=== PATIENT | female | born 2005 | race Hispanic/Latino ===

== ENCOUNTER 2025-04-27 18:38 | Emergency (ER) | payer MEDICAID ==
[~2025-04-27] VITALS: Ht 160 cm; Wt 83.9 kg
[2025-04-27 18:39] VITALS: TEMP 98.2
--- NOTE | 2025-04-27 18:49 | ERN ---
ED Note History of Present Illness Stated Complaint: VAGINAL BLEEDIN Chief Complaint: Vaginal Bleeding Time Seen by MD: 18:40 Dictation: PATIENT IS A 19-YEAR-OLD FEMALE WHO STATES SHE IS HERE WITH VAGINAL BLEEDING AND PELVIC CRAMPING ONSET THREE DAYS PRIOR TO ARRIVAL. SHE STATES SHE IS SEVEN WEEKS ,. SHE IS A PATIENT OF DR. TSANG HOWEVER HAS NOT HAD HER 1ST APPOINTMENT YET. SHE STATES SHE CALLED HIS OFFICE OVER THE LAST THREE DAYS I HAVE NOT BEEN ABLE TO SQUEEZE HER IN SHE CALLED THE ANSWERING SERVICE TODAY AND WAS ADVISED TO GO TO ANY HOSPITAL THAT HAD OB SERVICES. SHE HAS HAD NO CARE HAS NOT HURT HER VISIT TO DR. TSANG Allergies: Coded Allergies: ibuprofen (Unverified Allergy, Unknown, 04/27/25) Past Medical History Past Medical History: No Pertinent History Surgical History: None : 2 Para: 1 Aborts: 0 RN Note Reviewed/Agreed w/PFSH: Yes Review of System Dictation CONSTITUTIONAL: NEGATIVE EXCEPT FOR HPI HEAD/FACE: NEGATIVE EXCEPT FOR HPI EENT: NEGATIVE EXCEPT FOR HPI RESPIRATORY: NEGATIVE EXCEPT FOR HPI GASTROINTESTINAL/ABDOMINAL: NEGATIVE EXCEPT FOR HPI GENITOURINARY: NEGATIVE EXCEPT FOR HPI VAGINAL BLEEDING WITH CRAMPING MUSCULOSKELETAL: NEGATIVE EXCEPT FOR HPI INTEGUMENTARY: NEGATIVE EXCEPT FOR HPI NEUROLOGICAL/PSYCH: NEGATIVE EXCEPT FOR HPI HEMATOLOGIC/LYMPHATIC: NEGATIVE EXCEPT FOR HPI ALL SYSTEMS NEGATIVE, EXCEPT NOTED ABOVE. 13 POINT REVIEW OF SYSTEMS ASSESSED AND ALL NEGATIVE EXCEPT FOR ABOVE. Initial Vital Sign VS Vital Signs Date Time Temp Pulse Resp B/P (MAP) Pulse Ox O2 Delivery O2 Flow Rate FiO2 04/27/25 18:39 98.2 95 18 118/70 99 Room Air 04/27/25 18:39 0 21 Physical Exam Dictation VITAL SIGNS REVIEWED GENERAL APPEARANCE: ALERT, ORIENTED X 3, NO ACUTE DISTRESS, WELL DEVELOPED, NOURISHED. HEAD AND FACE: NON-TRAUMATIC. EYES: PERRL, PINK CONJUNCTIVAS, EYELID NO TRAUMA, ANTERIOR CHAMBER WITH ARCUS SENILIS. EARS: PINNAS INTACT AND NO SIGNS OF TRAUMA OR ERYTHEMA EAR CANALS CLEAR AND NO DISCHARGE TM NO ERYTHEMA NOSE: NO DISCHARGE, NO BLEEDING. OROPHARYNX: MOUTH NORMAL, TONGUE PINK, PHARYNX CLEAR,NO ERYTHEMA, TONSILS NO EXUDATES, NO ABSCESSES NOTED, MUCOUS MEMBRANE MOIST NECK: SUPPLE, NON-TENDER, NO THYROMEGALY, NO MASSES, NO JVD, NO BRUITS BREAST:DEFERRED CHEST:NO TENDERNESS, NO CREPITUS, NO PARADOXICAL MOVEMENT, NO RETRACTIONS LUNGS:CLEAR, WELL-VENTILATED, SYMMETRIC, NO RALES, NO WHEEZING, NO RHONCHI, NO STRIDOR, GOOD BREATH SOUNDS BILATERALLY HEART: REGULAR RATE, REGULAR RHYTHM, NO MURMUR, NO GALLOPS VASCULAR: NO PERIPHERAL EDEMA, ABDOMEN: SOFT, POSITIVE BOWEL SOUNDS, NONDISTENDED, NO GUARDING, NONTENDER, NO REBOUND, NO MASSES NO HEPATOMEGALY, NO SPLENOMEGALY, NO HERNANDEZ'S SIGN, NO HERNIAS. RECTAL: DEFERRED GENITAL: DEFERRED NEUROLOGICAL: NORMAL SPEECH, MOTOR FUNCTION INTACT, SENSORY FUNCTION INTACT MUSCULOSKELETAL: NECK NONTENDER, FULL RANGE OF MOTION, BACK NONTENDER, FULL RANGE OF MOTION, EXTREMITIES: NONTENDER, FULL RANGE OF MOTION SKIN: COLOR PINK, DRY, NO TURGOR, NO RASH, NO LACERATIONS, NO ABRASIONS, NO CONTUSIONS. LYMPHATIC: DEFERRED Results (Laboratory/Radiology) Laboratory/Radiology Laboratory Tests Test 04/27/25 19:12 04/27/25 19:15 Urine Color LIGHT-YELLOW (YELLOW) Urine Appearance CLEAR (CLEAR) Urine pH 5.5 (5.0-8.0) Urine Specific [place] 1.010 (1.001-1.031) Urine Protein NEGATIVE mg/dL (NEGATIVE) Urine Glucose (UA) NEGATIVE mg/dL (NEGATIVE) Urine Ketones NEGATIVE mg/dL (NEGATIVE) Urine Occult Blood LARGE (NEGATIVE) H Urine Nitrate NEGATIVE (NEGATIVE) Urine Bilirubin NEGATIVE mg/dL (NEGATIVE) Urine Urobilinogen 0.2 mg/dL (0.2-1.0) Urine Leukocyte Esterase NEGATIVE Mandie/uL Urine RBC 2-5 /HPF (0-1) H Urine WBC 2-5 /HPF (0-1) H Urine Squamous Epithelial Cells RARE /HPF (0-2) Urine Other Crystals (Auto) 1 /HPF (None Seen) Urine Bacteria FEW /HPF (None Seen) White Blood Count 9.2 K/uL (4.8-10.8) Red Blood Count 4.46 MIL/uL (4.00-5.50) Hemoglobin 13.1 g/dL (12.0-16.0) Hematocrit 39.5 % (36-48) Mean Corpuscular Volume 88.6 fL (80-100) Mean Corpuscular Hemoglobin 29.4 pg (27.0-33.0) Mean Corpuscular Hemoglobin Concent 33.2 g/dL (32.0-36.0) Red Cell Distribution Width 13.5 % (11.0-15.5) Platelet Count 300 K/uL (130-400) Mean Platelet Volume 9.1 fL (7.5-10.5) Immature Granulocyte % (Auto) 0.4 % (0-1) Neutrophils (%) (Auto) 64.9 % (40.0-77.0) Lymphocytes (%) (Auto) 24.8 % (21.0-51.0) Monocytes (%) (Auto) 9.2 % (3.0-13.0) Eosinophils (%) (Auto) 0.5 % (0.0-8.0) Basophils (%) (Auto) 0.2 % (0.0-5.0) Neutrophils # (Auto) 6.0 K/uL (1.8-7.7) Lymphocytes # (Auto) 2.3 K/uL (1.0-4.8) Monocytes # (Auto) 0.9 K/uL (0.1-1.0) Eosinophils # (Auto) 0.05 K/uL (0.00-0.70) Basophils # (Auto) 0.02 K/uL (0.00-0.20) Absolute Immature Granulocyte (auto 0.04 K/uL (0-1) Nucleated Red Blood Cells 0.0 % (0.0-0.19) Sodium Level 139 mmol/L (136-145) Potassium Level 3.5 mmol/L (3.5-5.1) Chloride Level 101 mmol/L (101-111) Carbon Dioxide Level 30 mmol/L (21-32) Blood Urea Nitrogen 8 mg/dL (7-18) Creatinine 0.8 mg/dL (0.5-1.0) Glomerular Filtration Rate Calc 109 mL/min (>90) Random Glucose 106 mg/dL (70-105) H Total Calcium 9.3 mg/dL (8.5-10.1) Human Chorionic Gonadotropin, Quant 2951 mIU/mL (0-5) H 2030/OB ULTRASOUND DEMONSTRATES SAC WITHOUT PULL. NO ACTIVE BLEEDING. FIVE WEEKS ONE DAY Labs Reviewed?: Yes ED Course ED Course Orders Procedure Category Date Status Time Cbc With Differential LAB 04/27/25 Complete 18:43 Hcg,Quantitative LAB 04/27/25 Complete 18:43 Us Ob <14 Weeks US 04/27/25 Taken 18:43 Basic Metabolic Panel LAB 04/27/25 Complete 18:43 *Nursing CPOE 04/27/25 Transmitted Communication: 18:43 Urinalysis Profile LAB 04/27/25 Complete 19:45 Vital Signs Date Time Temp Pulse Resp B/P (MAP) Pulse Ox O2 Delivery O2 Flow Rate FiO2 04/27/25 18:39 98.2 95 18 118/70 99 Room Air* 0 21 04/27/25 18:39 98.2 95 18 118/70 99 Room Air Medical Decision Making MDM MDM: DIFFERENTIAL DIAGNOSIS: MISCARRIAGE/INCOMPLETE MISCARRIAGE/THREATENED A B/ELECTROLYTE IMBALANCE/DEHYDRATION/UTI RATIONALE: TESTS CONSIDERED AND ORDERED SECONDARY TO SHARED DECISION MAKING INCLUDE: URINE/LABS/RADIOLOGY PREVIOUS OUTSIDE RECORDS REVIEWED: OLD ER VISITS. RISK OF COMPLICATION AND/OR MORBIDITY OR MORTALITY OF PATIENT MANAGEMENT: NONE MEDICATIONS-PER MEDICATION RECONCILIATION NEED FOR HOSPITALIZATION: PATIENT DOES NOT MEET CRITERIA FOR HOSPITALIZATION. NONE NEED FOR EMERGENCY MAJOR/MINOR SURGERY: NO THERE ARE NO SOCIAL CONCERNS WITH THIS PATIENT. PRESCRIPTION DRUG MANAGEMENT NONE TYLENOL ONLY FOR PAIN UNTIL CLEARED BY DR. VICKY RAYA PRESCRIPTIONS WILL INCLUDE SYMPTOMATIC CARE PATIENT'S PRIOR EXTERNAL MEDICAL RECORDS FROM OTHER ER VISITS WERE REVIEWED BY ME INDICATED. PRIOR TESTING AND RESULTS FROM PREVIOUS VISITS WERE REVIEWED. PRIOR TESTS WERE TAKEN INTO ACCOUNT WITH MEDICAL DECISION MAKING AND RESOURCE UTILIZATION, INDEPENDENT HISTORIAN/HISTORIANS WERE USED TO OBTAIN COMPLETE MEDICAL HISTORY. I INDEPENDENTLY INTERPRETED THE TEST THAT WERE PERFORMED, RESULTS WERE REVIEWED BY ME AND CONSIDERED FINDINGS ON RADIOLOGY IF ORDERED. MEDICAL MANAGEMENT AND EXAMINATION INTERPRETATION DISCUSSIONS WERE HAD BY ME WITH OTHER QUALIFIED HEALTHCARE PROFESSIONALS INDICATED FOR THE PATIENT'S CARE. Procedure Procedure Dictation: 1944/PROCEDURE EXPLAINED TO PATIENT SHE AGREED TO PROCEED LUANNE PACKER IN ROOM WITH THE EXAM PATIENT PLACED IN LITHOTOMY POSITION EXTERNAL EXAM IS NEGATIVE NO LESIONS NO MASSES INTERNAL EXAM OS IS CLOSED LESS THAN 1 ML OF DARK BLOOD IN VAULT. NO LESIONS TO VAGINAL AUGILAR. NEGATIVE CMT DX & DISP Disposition: Discharge Departure Impression: Primary Impression: Vaginal bleeding before 22 weeks gestation Condition: Stable Referrals: SELF,REFERRAL (PCP) Time of Disposition: 20:36 I have reviewed the case, and I agree with, Diagnosis and Plan DEE PRESCOTT WINDOWS DESKTOP SUPPORT Apr 27, 2025 18:49
--- NOTE | 2025-04-27 19:18 | NUR ---
ASSUMED PT CARE AT THIS TIME
[2025-04-27 19:26] LABS: IMMATURE GRANULOCYTE ABSOLUTE 0.04 K/uL (0-1); NUCLEATED RED BLOOD CELLS 0.0 % (0.0-0.19); PLATELET COUNT (AUTO) 300 K/uL (130-400); RED BLOOD CELL COUNT(AUTO) 4.46 MIL/uL (4.00-5.50); RED CELL DISTRIBUTION WIDTH 13.5 % (11.0-15.5); WHITE BLOOD COUNT (AUTO) 9.2 K/uL (4.8-10.8)
[2025-04-27 19:36] LABS: CREATININE 0.8 mg/dL (0.5-1.0); GLOMERULAR FILTR. RATE CALC 109.0 mL/min (>90); GLUCOSE,RANDOM 106.0 mg/dL (70-105); SODIUM SERUM 139.0 mmol/L (136-145); UREA NITROGEN, BLOOD 8.0 mg/dL (7-18)
[2025-04-27 20:02] LABS: HCG,QUANTITATIVE 2951.0 mIU/mL (0-5)
[2025-04-27 20:07] LABS: APPEARANCE,URINE CLEAR (CLEAR); GLUCOSE, URINE (UA) NEGATIVE (NEGATIVE); LEUKOCYTE ESTERASE ,URINE NEGATIVE Leu/uL (NEGATIVE); NITRATE,URINE NEGATIVE (NEGATIVE); OCCULT BLOOD,URINE LARGE (NEGATIVE)
[2025-04-27 20:10] LABS: ADD UA MICROSCOPIC YES
[2025-04-27 20:11] LABS: SQUAMOUS EPITHELIAL CELL,UR RARE /HPF (0-2); UNCLASSIFIED CRYSTAL 1 /HPF (None Seen)
--- NOTE | 2025-04-27 20:44 | HMCIMG ---
EXAMINATION: OB ULTRASOUND LESS THAN 14 WEEKS. CLINICAL HISTORY: Amenorrhea. Vaginal bleeding. COMPARISON: None. TECHNIQUE: Grayscale and color ultrasound images were obtained utilizing transabdominal transducer. FINDINGS: LMP: 03/12/2025, 6 weeks and 4 days. The uterus measures 7.8 x 4.5 x 4.8 cm. There is a single intrauterine with an approximate gestational age of 5 weeks and 4 days as per the gestation sac diameter which measures 0.7 x 0.9 x 0.8 cm. There is no pole seen at present. There is a small yolk sac There is no evidence of subchorionic hemorrhage. The cervix is normal in length, Internal Os closed. EDC (by LMP): 12/17/2025 and EDC (by measurement): 12/24/2025. The right ovary is normal in caliber and measures 2.8 x 2.0 x 2.3 cm. The left ovary is normal in caliber and measures 1.9 x 1.9 x 1.9 cm. There is no free fluid within the pelvis. IMPRESSION: Single intrauterine with an approximate gestational age of 5 weeks and 4 days. No pole seen at present. Recommend beta hcG correlation and follow-up ultrasound. /Gardiner
[2025-04-27 20:50] VITALS: BP 134/74; PULSE 88; RESP 16; O2SAT 97
== END 2025-04-27 20:52 | disposition home or self-care (01) ==
LOC: EDH 18:38
DX: O20.9 Hemorrhage in early pregnancy, unspecified (principal); O26.891 Other specified pregnancy related conditions, first trimester; R10.2 Pelvic and perineal pain; Z3A.01 Less than 8 weeks gestation of pregnancy; Z88.6 Allergy status to analgesic agent
CPT/HCPCS: 36415; 76801; 80048; 81001; 84702; 85025; 99284